=== PATIENT | male | born 1980 | race African-American/Black ===

== ENCOUNTER 2021-12-11 21:13 | Emergency (ER) | payer OTHER ==
[~2021-12-11] VITALS: Ht 180.3 cm; Wt 113.9 kg
[2021-12-11] MEDS ORDERED: LIDOCAINE HCL 2% TOP JELLY 5ML TOP ONE (23:45)
[2021-12-12] MEDS ORDERED: HYDROcodone-ACET 10/325MG TAB PO ONE (01:00)
[2021-12-12] MEDS ORDERED: MORPHINE SULFATE 4 MG/ML SYR/VIAL IV ONE ×2 (04:30→09:30)
[2021-12-12] MEDS ORDERED: ONDANSETRON HCL 4 MG/2 ML VIAL IV ONE ×2 (04:30→09:30)
[2021-12-12] MEDS ORDERED: LIDOCAINE 1%HCL (LOCAL ANESTH) 10 ML MDV ONE (09:42)
[2021-12-12] MEDS ORDERED: HYDROmorphone HCL 2 MG/ML VL/or syr IV ONE (10:30)
[2021-12-12 11:34] VITALS: BP 132/69
[2021-12-13] MEDS ORDERED: PROPOFOL 10 MG/ML 20 ML IV ONE (16:22)
== END 2021-12-12 12:11 | disposition home or self-care (01) ==
LOC: EEVIPCON 21:13 → ER 21:13
DX: T83.518A Infection and inflammatory reaction due to other urinary catheter, initial encounter (principal); G82.20 Paraplegia, unspecified; I10 Essential (primary) hypertension; Z91.040 Latex allergy status
CPT/HCPCS: 76942; 96374; 96375; 96376; 99285; J1170; J2001; J2270; J2405; 81001

== ENCOUNTER 2021-12-12 14:08 | Inpatient (IN) | payer OTHER ==
[~2021-12-12] VITALS: Ht 152.4 cm; Wt 114.0 kg
[2021-12-12] MEDS ORDERED: KETAMINE 50mg/ML 10ml Vial (500mg/10ml) IV ONE (14:45)
[2021-12-12] MEDS ORDERED: ETOMIDATE (2MG/ML) 20ML VIAL IV ONE ×3 (15:30→17:25)
[2021-12-12] MEDS ORDERED: cefTRIAXone 1GM/50ML D5W 50 ML IV ONE (17:45)
[2021-12-12] MEDS ORDERED: SODIUM CHLORIDE 0.9% 1,000 ML IV ONE ×2 (18:00)
[2021-12-12] MEDS ORDERED: ONDANSETRON HCL 4 MG/2 ML VIAL IV ONE (18:15)
[2021-12-12] MEDS ORDERED: HYDROmorphone HCL 2 MG/ML VL/or syr IV ONE (18:15)
[2021-12-12 19:13] LABS: Basophils # (auto) 0.1 10 ^3/uL (0-0.2); Basophils % (auto) 0.3 % (0.0-2.0); Eosinophils # (auto) 0 10 ^3/uL (0-0.8); Hematocrit 43.7 % (41.0-53.0); Hemoglobin 14.5 g/dL (13.5-17.5); Lymphocytes # (auto) 0.9 10 ^3/uL (0.4-5.4); Lymphocytes % (auto) 4.5 % (10.0-50.0); Mean Corpuscular Hgb Conc. 33.1 g/dL (32.0-36.0); Mean Corpuscular Volume 87.6 fL (80.0-100.0); Monocytes % (auto) 4.9 % (0.0-12.0); Neutrophils # (auto) 18.5 10 ^3/uL (1.6-8.6); Neutrophils % (auto) 90.3 % (37.0-80.0); Red Blood Cells 4.99 10^6/uL (4.5-5.90); Red Cell Distribution Width 15.5 % (11.8-14.3); White Blood Cell 20.5 10^3/uL (4.4-10.8)
[2021-12-12 19:24] LABS: INR 1.06 (0.9-1.15); Partial Thromboplastin Time 21.5 sec (23.6-33.0)
[2021-12-12 19:52] LABS: Calcium 9.7 mg/dL (8.5-10.1); Potassium 4.8 mmol/L (3.5-5.1)
[2021-12-12 19:55] LABS: Lactic Acid w/Reflex 2.4 mmol/L (0.4-2.0)
[2021-12-12 19:56] LABS: BUN/Creatinine Ratio 8.1; Bilirubin, Total 1.7 mg/dL (0.2-1.0); Total Protein 9.2 g/dL (6.4-8.2)
[2021-12-12] MEDS ORDERED: PIPERACILLIN-TAZOB 2.25GM 50 ML IV SCH (22:00)
[2021-12-12 23:00] VITALS: BP 103/87
[2021-12-12] MEDS: PIPERACILLIN-TAZOB 2.25GM 50 ML IV SCH (23:27)
[2021-12-12] MEDS: HYDROcodone-ACET 10/325MG TAB PO PRN (23:28)
[2021-12-13 00:24] LABS: Urine Bacteria MANY /hpf (None Seen); Urine Blood 3+ /uL (Negative); Urine Mucus MODERATE (None Seen); Urine WBC 826 /hpf (0 - 3); Urine WBC Clumps PRESENT /hpf (None Seen)
[2021-12-13 00:27] LABS: Urine Specific Gravity 1.023 (1.001-1.035)
[2021-12-13] MEDS: PIPERACILLIN-TAZOB 2.25GM 50 ML IV SCH ×4 (04:00→21:00)
[2021-12-13 05:00] VITALS: BP 108/66
[2021-12-13] MEDS: HYDROcodone-ACET 10/325MG TAB PO PRN ×2 (06:08→12:41)
[2021-12-13 08:00] VITALS: BP 122/69
[2021-12-13 09:00] VITALS: BP 122/69
[2021-12-13] MEDS: DOCUSATE SOD 100 MG CAP PO SCH (10:00)
[2021-12-13 10:06] LABS: Potassium 4.3 mmol/L (3.5-5.1)
[2021-12-13 10:10] LABS: Albumin 3.3 g/dL (3.4-5.0); BUN/Creatinine Ratio 14.2; Calcium 9.3 mg/dL (8.5-10.1); Phosphorus 3.1 mg/dL (2.5-4.90)
[2021-12-13] MEDS: ACETAMINOPHEN 325 MG TAB PO PRN ×2 (10:47→23:40)
[2021-12-13 13:00] VITALS: BP 121/58
[2021-12-13] MEDS ORDERED: fentaNYL CITRATE 100 MCG/2 ML VL ONE (16:36)
[2021-12-13] MEDS ORDERED: MIDAZOLAM HCL 2MG/2ML 2ml VIAL (1mg/ml) ONE (16:37)
[2021-12-13] MEDS ORDERED: ROCURONIUM 10MG/ML 10ML VIAL IV ONE (16:37)
[2021-12-13] MEDS ORDERED: PROPOFOL 10 MG/ML 20 ML IV ONE ×2 (16:57→18:26)
[2021-12-13 17:00] VITALS: BP 113/97
[2021-12-13] MEDS ORDERED: HYDROmorphone HCL 2 MG/ML VL/or syr IV PRN (17:45)
[2021-12-13] MEDS ORDERED: ONDANSETRON HCL 4 MG/2 ML VIAL IV PRN (17:45)
[2021-12-13] MEDS: TAMSULOSIN HYDROCHLORIDE 0.4 MG CAP PO SCH (18:00)
[2021-12-13] MEDS: HYDROmorphone HCL 2 MG/ML VL/or syr IV PRN ×2 (18:50→19:14)
[2021-12-14] MEDS: PIPERACILLIN-TAZOB 2.25GM 50 ML IV SCH ×4 (03:49→22:34)
[2021-12-14 05:00] VITALS: BP 118/60
[2021-12-14] MEDS: HYDROcodone-ACET 10/325MG TAB PO PRN ×2 (05:55→18:21)
[2021-12-14 09:00] VITALS: BP 137/90
[2021-12-14] MEDS: DOCUSATE SOD 100 MG CAP PO SCH ×2 (10:00→11:07)
[2021-12-14] MEDS ORDERED: ENOXAPARIN SOD 40 MG/0.4 ML SYRINGE SC SCH (10:00)
[2021-12-14] MEDS: ENOXAPARIN SOD 40 MG/0.4 ML SYRINGE SC SCH ×2 (11:07→22:34)
[2021-12-14 13:00] VITALS: BP 156/89
[2021-12-14 17:00] VITALS: BP 148/94
[2021-12-14] MEDS: TAMSULOSIN HYDROCHLORIDE 0.4 MG CAP PO SCH (17:05)
[2021-12-14 17:58] LABS: Basophils # (auto) 0 10 ^3/uL (0-0.2); Basophils % (auto) 0.2 % (0.0-2.0); Eosinophils # (auto) 0 10 ^3/uL (0-0.8); Hematocrit 41.6 % (41.0-53.0); Hemoglobin 13.7 g/dL (13.5-17.5); Lymphocytes # (auto) 0.9 10 ^3/uL (0.4-5.4); Lymphocytes % (auto) 4.6 % (10.0-50.0); Mean Corpuscular Hemoglobin 29.1 pg (28.0-32.0); Mean Corpuscular Hgb Conc. 32.9 g/dL (32.0-36.0); Mean Corpuscular Volume 88.5 fL (80.0-100.0); Monocytes # (auto) 1.1 10 ^3/uL (0-1.3); Neutrophils # (auto) 16.7 10 ^3/uL (1.6-8.6); Neutrophils % (auto) 89.2 % (37.0-80.0); Red Cell Distribution Width 16.1 % (11.8-14.3); White Blood Cell 18.7 10^3/uL (4.4-10.8)
[2021-12-14 18:11] LABS: BUN/Creatinine Ratio 8.7; Calcium 9.5 mg/dL (8.5-10.1); INR 1.08 (0.9-1.15); Potassium 4.6 mmol/L (3.5-5.1)
[2021-12-14] MEDS: ACETAMINOPHEN 325 MG TAB PO PRN (22:35)
[2021-12-15] MEDS: HYDROcodone-ACET 10/325MG TAB PO PRN ×2 (00:35→06:32)
[2021-12-15] MEDS: PIPERACILLIN-TAZOB 2.25GM 50 ML IV SCH ×4 (03:49→22:18)
[2021-12-15 05:00] VITALS: BP 108/68
[2021-12-15] MEDS ORDERED: fentaNYL CITRATE 100 MCG/2 ML VL ONE (08:12)
[2021-12-15] MEDS ORDERED: MIDAZOLAM HCL 2MG/2ML 2ml VIAL (1mg/ml) ONE (08:12)
[2021-12-15] MEDS ORDERED: KETAMINE HCL 10 ML ONE (08:13)
[2021-12-15] MEDS ORDERED: DexAMETHasone SOD PHOS 10MG/1ML VIAL INJ ONE (08:13)
[2021-12-15] MEDS ORDERED: SODIUM CHLORIDE LOCK 10 ML ONE (08:13)
[2021-12-15] MEDS ORDERED: PROPOFOL 10 MG/ML 20 ML IV ONE ×2 (08:13→09:52)
[2021-12-15] MEDS ORDERED: ONDANSETRON HCL 4 MG/2 ML VIAL ONE (08:13)
[2021-12-15] MEDS ORDERED: ceFAZolin 1GM/50ML 100 ML IV ONE (08:26)
[2021-12-15] MEDS ORDERED: METOCLOPRAMIDE HCL 5MG/ml INJ 2ml VIAL IV PRN (08:45)
[2021-12-15] MEDS ORDERED: MORPHINE SULFATE 4 MG/ML SYR/VIAL IV PRN (08:45)
[2021-12-15] MEDS ORDERED: IOHEXOL 300 MG/ML 100ML BOTTLE IJ ONE (08:53)
[2021-12-15] MEDS ORDERED: LIDOCAINE 1%-Mpf/Epinephrine 1:200,000 ONE (08:53)
[2021-12-15] MEDS: HYDROmorphone HCL 2 MG/ML VL/or syr IV PRN ×7 (11:00→20:13)
[2021-12-15] MEDS: DOCUSATE SOD 100 MG CAP PO SCH (12:42)
[2021-12-15] MEDS: ENOXAPARIN SOD 40 MG/0.4 ML SYRINGE SC SCH ×2 (12:42→22:18)
[2021-12-15 17:00] VITALS: BP 117/64
[2021-12-15] MEDS: TAMSULOSIN HYDROCHLORIDE 0.4 MG CAP PO SCH (17:46)
[2021-12-15] MEDS ORDERED: SULF800T7 PO (18:46)
[2021-12-15] MEDS ORDERED: AMPI500C8 PO (18:56)
[2021-12-16] MEDS: HYDROmorphone HCL 2 MG/ML VL/or syr IV PRN ×2 (00:10→08:44)
[2021-12-16] MEDS: PIPERACILLIN-TAZOB 2.25GM 50 ML IV SCH ×2 (03:47→10:00)
[2021-12-16 09:00] VITALS: BP 113/54
[2021-12-16] MEDS: DOCUSATE SOD 100 MG CAP PO SCH (10:00)
[2021-12-16] MEDS: ENOXAPARIN SOD 40 MG/0.4 ML SYRINGE SC SCH (10:00)
[2021-12-16 11:13] VITALS: BP 113/54
[2021-12-16 13:00] VITALS: BP 111/73
== END 2021-12-16 22:29 | DRG 663 ==
LOC: ER 14:08 → EEVIPCON 14:08 → OVERFLOW 18:40 → CENTRAL 22:14
PROVIDERS: ADMIT Internal Medicine; ATTEND Internal Medicine
PROC: 0TJB0ZZ Inspection of Bladder, Open Approach (ICD-10-PCS; 2021-12-13)
PROC: 0TJB8ZZ Inspection of Bladder, Via Natural or Artificial Opening Endoscopic (ICD-10-PCS; principal; 2021-12-13 16:32)
PROC: 0T9B30Z Drainage of Bladder with Drainage Device, Percutaneous Approach (ICD-10-PCS; 2021-12-15)
DX: N13.6 Pyonephrosis (principal); G82.20 Paraplegia, unspecified; Z68.42 Body mass index [BMI] 45.0-49.9, adult; N32.0 Bladder-neck obstruction; N31.9 Neuromuscular dysfunction of bladder, unspecified; I95.9 Hypotension, unspecified; E66.01 Morbid (severe) obesity due to excess calories; I10 Essential (primary) hypertension; B95.1 Streptococcus, group B, as the cause of diseases classified elsewhere; N35.919 Unspecified urethral stricture, male, unspecified site; R33.9 Retention of urine, unspecified; Z53.9 Procedure and treatment not carried out, unspecified reason; Z82.49 Family history of ischemic heart disease and other diseases of the circulatory system; Z99.3 Dependence on wheelchair; Z91.040 Latex allergy status; N17.9 Acute kidney failure, unspecified
CPT/HCPCS: 36415; 71045; 72170; 74176; 76000; 76942; 80048; 80053; 80069; 81001; 83605; 84484; 85025; 85610; 85730; 87040; 87086; 87088; 87186; 96361; 96365; 96375; 99291; G0378; J0690; J0696; J1100; J2250; J2405; J2543; J2704